=== PATIENT | female | born 1995 | race Caucasian/White ===

== ENCOUNTER 2017-07-17 20:12 | Emergency (ER) | payer SELFPAY ==
--- NOTE | 2017-07-17 20:17 | PDOC ---
History of Present Illness - General History Source: Patient Exam Limitations: No Limitations - History of Present Illness Initial Comments: 07/17/17 20:23 The patient is a 21 year old female with no significant past medical history who presents to the ED s/p left thumb injury. Patient states she slammed her left thumb with the car door last night. She comes into the ED with pain, swelling, and redness to her left thumb. Denies fever or chills. Denies focal numbness/weakness/tingling. Denies any other symptoms. PAST MEDICAL HISTORY: no significant history PAST SURGICAL HISTORY: no significant history FAMILY HISTORY: no pertinent history SOCIAL HISTORY: Pt lives with family and is employed. MEDICATIONS: reviewed ALLERGIES: As per nursing notes General: No fevers or chills, no weakness, no weight loss HEENT: No change in vision. No sore throat,. No ear pain CardioVascular: No chest pain or shortness of breath Respiratory:No cough, or wheezing. Gastrointestinal: no nausea, vomiting, diarrhea or constipation, No rectal bleeding Genitourinary: No dysuria, hematuria, or frequency Musculoskeletal: + finger swelling, redness, pain. Neurologic: No headache, vertigo, dizziness or loss of consciousness Psychiatric: nor depression Skin: No rashes or easy bruising Endocrine: no increased thirst or abnormal weight change Allergic: no skin or latex allergy All other systems reviewed and normal GENERAL: The patient is awake, alert, and fully oriented, in no acute distress. HEAD: Normal with no signs of trauma. EYES: Pupils equal, round and reactive to light, extraocular movements intact, sclera anicteric, conjunctiva clear. EXTREMITIES: + Approximately 30% subungual hematoma on base of left nail, with tenderness and swelling over the distal phalanx. Mild decreased ROM at the left DP NEUROLOGICAL: Normal speech, normal gait. PSYCH: Normal mood, normal affect. SKIN: Warm, Dry, normal turgor, no rashes or lesions noted. <Sydni Carlson - Last Filed: 07/17/17 20:22> - General History Source: Patient Exam Limitations: No Limitations - History of Present Illness Initial Comments: A portion of this note was documented by scribe services under my direction. I have reviewed the details of the note, within reason, and agree with the documentation. The case summary and management plan written by me. X-ray left thumb no acute fracture Procedure note: Trephination of the subungual hematoma via electrocautery was performed patient tolerated well there was moderate amount of blood drained from the subungual hematoma 07/17/17 21:14 Assessment and plan: This is a 20-year-old female who comes in with a subungual hematoma approximately 30% of the nail after slamming her thumb in a car door approximately 12 hours ago. Patient had trephination of the hematoma with drainage of the blood. Patient's x-rays negative for any fracture. Patient discharged home will follow-up with her doctor. <Kacie De Paz I - Last Filed: 07/17/17 21:17> - General Chief Complaint: Injury Stated Complaint: SLAMMED LEFT THUMB IN CAR DOOR Time Seen by Provider: 07/17/17 20:13 Past History <Sydni Carlson - Last Filed: 07/17/17 20:22> <Kacie De Paz I - Last Filed: 07/17/17 21:17> - Past Medical History Allergies/Adverse Reactions: Allergies Allergy/AdvReac Type Severity Reaction Status Date / Time No Known Allergies Allergy Verified 07/17/17 20:13 Home Medications: Ambulatory Orders NK [No Known Home Medication] 07/17/17 *Physical Exam - Vital Signs Last Vital Signs Temp Pulse Resp BP Pulse Ox 98.3 F 83 16 134/75 100 07/17/17 20:14 07/17/17 20:14 07/17/17 20:14 07/17/17 20:14 07/17/17 20:14 <Sydni Carlson - Last Filed: 07/17/17 20:22> *DC/Admit/Observation/Transfer - Attestations Scribe Attestion: 07/17/17 20:23 Documentation prepared by Sydni Carlson, acting as durable medical equipment repairer for Kacie De Paz MD <Sydni Carlson - Last Filed: 07/17/17 20:22> - Discharge Dispostion Admit: No <Kacie De Paz I - Last Filed: 07/17/17 21:17> Diagnosis at time of Disposition: Subungual hematoma of left thumb Qualifiers: Encounter type: initial encounter Qualified Code(s): S60.112A - Contusion of left thumb with damage to nail, initial encounter - Discharge Dispostion Disposition: HOME Condition at time of disposition: Stable - Patient Instructions Additional Instructions: Tylenol or Motrin as needed for pain. Return to the emergency department immediately with ANY new, persistent or worsening symptoms. Continue any medications as previously prescribed by your physician. You should follow up with your primary doctor as soon as possible regarding today's emergency department visit. . Please make sure your doctor reviews the results of your emergency evaluation. Thank you for coming to the Emergency Department today for your care. It was a pleasure to see you today. Please note that your evaluation is INCOMPLETE until you follow-up with your doctor.
[2017-07-17 20:19] VITALS: BP 134/75; PULSE 83; TEMP 98.3; BMI 25.6
== END 2017-07-17 21:32 | disposition home or self-care (01) ==
LOC: FER 20:12
DX: S60.112A Contusion of left thumb with damage to nail, initial encounter (principal); W23.0XXA Caught, crushed, jammed, or pinched between moving objects, initial encounter; Y93.89 Activity, other specified; Y92.9 Unspecified place or not applicable
CPT/HCPCS: 73140-TC-LT-FY; 84703; 99281-25

== ENCOUNTER 2023-07-26 14:25 | Emergency (ER) | payer OTHER ==
[2023-07-26 14:36] VITALS: RESP 18; BMI 29.2
[2023-07-26 15:47] LABS: BASO % 0.4 % (0-2.0); EOS % 0.9 % (0-4.5); HEMATOCRIT 40.8 % (32.4-45.2); HEMOGLOBIN 13.8 GM/dL (10.7-15.3); LYMPH % 12.9 % (8-40); MCHC 33.9 g/dl (32.0-36.0); MEAN CELL VOLUME 85.6 fl (80-96); MONO % 5.7 % (3.8-10.2); NEUT % 80.1 % (42.8-82.8); PLATELET COUNT 229 10^3/uL (134-434); RBC 4.77 M/mm3 (3.60-5.2); RDW 13.9 % (11.6-15.6); WHITE BLOOD COUNT 14.7 K/mm3 (4.0-10.0)
[2023-07-26] MEDS ORDERED: KETOROLAC TROMETHAMINE 30 MG/1 ML VIAL ONE (15:47)
[2023-07-26] MEDS: KETOROLAC TROMETHAMINE 30 MG/1 ML VIAL IM ONE (15:53)
[2023-07-26 16:26] LABS: POTASSIUM 3.9 mmol/L (3.5-5.1)
[2023-07-26 16:28] LABS: ALBUMIN 3.7 g/dl (3.4-5.0); BLOOD UREA NITROGEN 7.8 mg/dL (7-18)
[2023-07-26 16:31] LABS: CREATININE 0.6 mg/dL (0.55-1.3)
[2023-07-26 16:33] LABS: BILIRUBIN,TOTAL 0.6 mg/dL (0.2-1); TOT PROT 7.5 g/dl (6.4-8.2)
[2023-07-26 18:56] VITALS: BP 120/76; PULSE 89; TEMP 98.6
== END 2023-07-26 19:26 | disposition home or self-care (01) ==
LOC: JERFT 14:25
PROC: 3E0233Z Introduction of Anti-inflammatory into Muscle, Percutaneous Approach (ICD-10-PCS; principal; 2023-07-26)
DX: J02.9 Acute pharyngitis, unspecified (principal); J35.8 Other chronic diseases of tonsils and adenoids; R07.0 Pain in throat
CPT/HCPCS: 36415; 70491-TC; 80053; 84703; 85025; 99285-25

== ENCOUNTER 2023-08-05 17:10 | Emergency (ER) | payer OTHER ==
[2023-08-05 17:15] VITALS: BP 135/84; PULSE 84; RESP 20; TEMP 98.1; BMI 28.3
[2023-08-05] MEDS: SODIUM CHLORIDE 0.9% 500 ML INFUS.BAG IV ONE (19:14)
[2023-08-05 19:17] LABS: BASO % 0.3 % (0-2.0); EOS % 1.2 % (0-4.5); HEMATOCRIT 42.3 % (32.4-45.2); HEMOGLOBIN 14.6 GM/dL (10.7-15.3); LYMPH % 21.9 % (8-40); MCH 29.1 pg (25.7-33.7); MCHC 34.5 g/dl (32.0-36.0); MEAN CELL VOLUME 84.2 fl (80-96); MEAN PLT VOLUME 8.9 fl (7.5-11.1); MONO % 4.4 % (3.8-10.2); NEUT % 72.2 % (42.8-82.8); PLATELET COUNT 300 10^3/uL (134-434); RBC 5.02 M/mm3 (3.60-5.2); RDW 13.8 % (11.6-15.6); WHITE BLOOD COUNT 10.9 K/mm3 (4.0-10.0)
[2023-08-05 19:32] LABS: PH,URINE 5.5 (5.0-8.0); URINE APPEARANCE CLEAR; URINE BILIRUBIN NEGATIVE (NEGATIVE); URINE COLOR DK YELLOW; URINE GLUCOSE (UA) NEGATIVE (NEGATIVE); URINE KETONE 1+ (NEGATIVE); URINE LEUK ESTERASE NEGATIVE (NEGATIVE); URINE NITRITE NEGATIVE (NEGATIVE); URINE PROTEIN TRACE (NEGATIVE); URINE UROBILINOGEN 0.2 mg/dL (0.2-1.0)
[2023-08-05 19:33] LABS: POTASSIUM 3.7 mmol/L (3.5-5.1)
[2023-08-05 19:35] LABS: BLOOD UREA NITROGEN 8.2 mg/dL (7-18); CALCIUM 9.3 mg/dL (8.5-10.1)
[2023-08-05 19:36] LABS: ALBUMIN 4.2 g/dl (3.4-5.0)
[2023-08-05 19:38] LABS: CREATININE 0.6 mg/dL (0.55-1.3)
[2023-08-05 19:40] LABS: BILIRUBIN,TOTAL 0.6 mg/dL (0.2-1); TOT PROT 7.8 g/dl (6.4-8.2)
== END 2023-08-05 20:20 | disposition home or self-care (01) ==
LOC: JER 17:10
DX: O99.63 Diseases of the digestive system complicating the puerperium (principal); R19.7 Diarrhea, unspecified; O99.893 Other specified diseases and conditions complicating puerperium; R07.0 Pain in throat; R10.9 Unspecified abdominal pain
CPT/HCPCS: 36415; 80053; 81003; 83690; 83735; 84703; 85025; 87070; 87077; 87086; 87205; 87491; 87591; 87661; 99284-25

== ENCOUNTER 2023-09-06 21:32 | Emergency (ER) | payer OTHER ==
[2023-09-06 21:38] VITALS: BP 117/79; PULSE 90; RESP 18; TEMP 98; BMI 28.3
[2023-09-06] MEDS ORDERED: IBUPROFEN 600 MG TABLET (FP) PO ONE (23:55)
[2023-09-06] MEDS: IBUPROFEN 600 MG TABLET (FP) PO ONE (23:55)
== END 2023-09-07 00:04 | disposition home or self-care (01) ==
LOC: JER 21:32
DX: A04.72 Enterocolitis due to Clostridium difficile, not specified as recurrent (principal); J02.9 Acute pharyngitis, unspecified
CPT/HCPCS: 87070; 87651; 99283-25